=== PATIENT | female | born 1995 ===

== ENCOUNTER 2022-07-05 12:29 | Outpatient (CLI) | payer OTHER ==
[2022-07-05] VITALS (8 sets, daily range): BP systolic 126–177; BP diastolic 83–112; PULSE 103–117; TEMP 98.4
[~2022-07-05] VITALS: Ht 162.6 cm; Wt 102.3 kg
[2022-07-05] MEDS ORDERED: ZOFRAN ODT4 MG (12:32)
[2022-07-05] MEDS ORDERED: ASPIRIN 81M81 MG/TA2 (12:32)
[2022-07-05] MEDS ORDERED: ALLEGRA 180MG180 MG (12:32)
[2022-07-05] MEDS ORDERED: ATARAX 25MG25 MG/TAB (12:33)
[2022-07-05] MEDS ORDERED: M-NATAL PLUS T1 EACH (12:33)
[2022-07-05] MEDS ORDERED: ZOLOFT 25MG25 MG (12:33)
[2022-07-05] MEDS ORDERED: MAG-OX 400400 MG/TAB (12:33)
[2022-07-05 12:59] LABS: COLLECTION METHOD CLEAN CATCH
[2022-07-05 13:03] LABS: HEMOGLOBIN 10.7 g/dl (12.5-16.0); MEAN CELL VOLUME 90 fl (80.0-100.0); MEAN CORPUSCULAR HEMOGLOBIN 30 pg (27-31); MEAN CORPUSCULAR HGB CONC 33 g/dl (33.0-37.0); MEAN PLATELET VOLUME 12.2 fl (7.4-10.4); PLATELET COUNT 125 K/mm3 (130-400); RED BLOOD COUNT 3.63 M/mm3 (4.10-5.30)
[2022-07-05 13:06] LABS: HEMATOCRIT 32.5 % (37.0-47.0)
--- NOTE | 2022-07-05 13:07 | NUR ---
1205 PATIENT HERE FOR HAVING HIGH BLOOD PRESSURES AT THE CARDILOGY OFFICE TODAY A FOLLOW UP. DR SENT PATIENT TO HOSPITAL. EFM ON FHT 120 GOOD ACCELERATIONS NOTED AND VERY ACTIVE. CONTRACTIONS OCCASIONALLY ON MONITOR BUT NOT FELT BY PATIENT AND PALPATE MILD. DR PANDYA CALLED AND UPDATED ON ALL ABOVE INFORMATION AND ORDERS GIVEN. BP 145/100 ON ADMIT. TRYING TO OBTAIN RECORDS FROM SONIYA ORTEZ. PATIENT DENIES HEADACHE, OR ABD PAIN. SLIGHT SWELLING NOTED TO FEET
[2022-07-05 13:12] LABS: MUCOUS Present (NOT PRESENT); URINE BACTERIA Rare /hpf (NONE SEEN); URINE COLOR Yellow (YELLOW)
[2022-07-05 13:13] LABS: PH 7 (5-8); URINE APPEARANCE Cloudy (CLEAR/HAZY); URINE BLOOD TRACE-INTACT (NEGATIVE); URINE GLUCOSE Negative (NEGATIVE); URINE KETONE Negative (NEGATIVE); URINE NITRATE Negative (NEGATIVE); URINE PROTEIN(semi-quant) Negative (NEGATIVE); URINE UROBILINOGEN 0.2 (NEGATIVE)
[2022-07-05 13:18] LABS: ALBUMIN 2.8 gm/dL (3.5-5.0); BILIRUBIN,TOTAL 0.3 mg/dL (0.2-1.2); CALCIUM 9.3 mg/dL (8.4-10.2); CREATININE, serum 0.67 mg/dL (0.57-1.11); POTASSIUM 3.8 mmol/L (3.5-4.5)
--- NOTE | 2022-07-05 13:18 | NUR ---
4643 - DR PANDYA TO BEDSIDE
--- NOTE | 2022-07-05 14:09 | NUR ---
1345 - CELESTONE 12MG GIVEN IM TO RGM BY STUDENT NURSE, INJECTION OBSERVED BY THIS RN. LABETALOL GIVEN PO PER DR YA SMITH
--- NOTE | 2022-07-05 16:32 | NUR ---
1535 - RN PHONED DR PANDYA, SEE PHYSICIAN NOTIFICATION, DISCHARGE ORDER RECEIVED
--- NOTE | 2022-07-05 16:34 | NUR ---
1545 - EFM REMOVED, PT NOTIFIED OF DISCHARGE ORDER FROM DR PANDYA AND FOLLOW UP PLAN OF CARE
--- NOTE | 2022-07-05 16:35 | NUR ---
1615 - DISCHARGE INSTRUCTIONS GIVEN TO PT AND MOTHER, PT HEALTH SUMMARY GIVEN VERBALIZES GOOD UNDERSTANDING OF INSTRUCTIONS 1622 - DISMISSED AMBULATORY WITH MOTHER IN STABLE CONDITION
== END 2022-07-05 16:22 | disposition home or self-care (01) ==
LOC: LDRO 12:29
PROVIDERS: Obstetrics & Gynecology
DX: O16.9 Unspecified maternal hypertension, unspecified trimester (principal); Z3A.00 Weeks of gestation of pregnancy not specified
CPT/HCPCS: J0702